=== PATIENT | male | born 1960 | race Caucasian/White ===

== ENCOUNTER 2020-12-01 13:42 | Emergency (ER) | payer MEDICARE ==
[2020-12-01 14:51] LABS: HEMOGLOBIN 10.1 gm/dl (14.0-17.5); RED BLOOD COUNT 3.17 M/UL (4.20-5.50); WHITE BLOOD COUNT 6.2 K/UL (4.5-11.0)
[2020-12-01] MEDS ORDERED: COLCHICINE0.6 MG PO (16:10)
[2020-12-01] MEDS ORDERED: PERCOCET 5/325 T1 EA PO (16:10)
== END 2020-12-01 16:30 | disposition home or self-care (01) ==
LOC: ER1 13:42
PROVIDERS: Family Medicine
DX: M10.9 Gout, unspecified (principal); I10 Essential (primary) hypertension; Z99.2 Dependence on renal dialysis; Z88.2 Allergy status to sulfonamides; Z88.8 Allergy status to other drugs, medicaments and biological substances
CPT/HCPCS: 73630; 80053; 83605; 84550; 85025; 96372; 99283; J1100